=== PATIENT | female | born 1940 | race Caucasian/White ===

== ENCOUNTER → 2018-02-09 | Outpatient (CLI) | payer OTHER, MEDICAID | LOC: CIMAGING 15:11 | PROVIDERS: ATTEND Family Medicine | DX: R07.81 Pleurodynia (principal) | CPT/HCPCS: 71101-PO ==

== ENCOUNTER → 2018-07-06 | Outpatient (CLI) | payer OTHER, MEDICAID | LOC: CIMAGING 10:48 | PROVIDERS: ATTEND Family Medicine | DX: I51.7 Cardiomegaly (principal); E03.9 Hypothyroidism, unspecified; E78.00 Pure hypercholesterolemia, unspecified; G47.30 Sleep apnea, unspecified; Z95.0 Presence of cardiac pacemaker | CPT/HCPCS: 36415-PO; 71046-PO ==

== ENCOUNTER → 2018-07-14 | Outpatient (CLI) | payer OTHER, MEDICAID | LOC: CIMAGING 13:03 | PROVIDERS: ATTEND Family Medicine | DX: N60.02 Solitary cyst of left breast (principal) | CPT/HCPCS: 76641-PO ==